=== PATIENT | male | born 1955 | race Caucasian/White ===

== ENCOUNTER 2017-12-19 09:08 | Emergency (ER) | payer BC, SELFPAY ==
[~2017-12-19] VITALS: Ht 175.3 cm; Wt 94.1 kg
[2017-12-19] MEDS ORDERED: diltiazem 5mg/ml 5ml inj. IV ONE ×3 (09:30→11:10)
[2017-12-19] MEDS ORDERED: LORazepam 2 mg/ml vial IV ONE (09:45)
[2017-12-19 09:46] LABS: BASOPHILS % (AUTO) 0.2 % (0-1); EOSINOPHILS # (AUTO) 0.1 X10'3 (0-0.9); EOSINOPHILS % (AUTO) 1.6 % (0-6); HEMATOCRIT 51.8 % (42.0-52.0); HEMOGLOBIN 17.7 g/dl (14.0-17.9); LYMPHOCYTES # (AUTO) 1.4 X10'3 (1.1-4.8); LYMPHOCYTES % (AUTO) 16.9 % (21-51); MEAN CORPUSCULAR HEMOGLOBIN 31.6 PG (27.0-31.0); MEAN CORPUSCULAR HGB CONC 34.2 % (33.0-36.5); MEAN CORPUSCULAR VOLUME 92.4 FL (78-98); MEAN PLATELET VOLUME 7.9 FL (7.4-10.4); MONOCYTES # (AUTO) 0.4 X10'3 (0-0.9); MONOCYTES % (AUTO) 4.5 % (2-12); NEUTROPHILS # (AUTO) 6.3 X10'3 (1.8-7.7); NEUTROPHILS % (AUTO) 76.8 % (42-75); PLATELET COUNT 253 X10'3 (140-440); RED CELL DISTRIBUTION WIDTH 14.8 % (11.5-14.5); WHITE BLOOD COUNT 8.2 X10'3 (4.5-11.0)
[2017-12-19 09:59] LABS: ALANINE AMINOTRANSFERASE 55 U/L (12-78); ALBUMIN 3.9 G/DL (3.4-5.0); ALKALINE PHOSPHATASE 92 IU/L (46-116); ANION GAP 16 (8-16); ASPARTATE AMINO TRANSFERASE 21 U/L (10-37); BILIRUBIN,TOTAL 0.7 MG/DL (0.1-1.0); BLOOD UREA NITROGEN 12 MG/DL (7-18); BUN/CREATININE RATIO 10.5 (5.4-32.0); CALCIUM 9.1 MG/DL (8.5-10.1); CHLORIDE 100 MMOL/L (99-107); CREATININE 1.14 MG/DL (0.60-1.10); GLUCOSE 149 MG/DL (70-104); POTASSIUM 4.3 MMOL/L (3.5-5.1); SODIUM 138 MMOL/L (135-145); TOTAL CARBON DIOXIDE 22.3 MMOL/L (24-32); TOTAL PROTEIN 7.9 G/DL (6.4-8.2); eGFR 65 ML/MIN
[2017-12-19 10:07] LABS: MAGNESIUM 1.8 MG/DL (1.5-2.4)
[2017-12-19] MEDS ORDERED: famotidine 20mg tablet PO ONE (10:50)
[2017-12-19] MEDS ORDERED: diltiazem CD 120mg capsule (once-daily) PO SCH (11:05)
[2017-12-19 11:40] VITALS: BP 120/60
== END 2017-12-19 11:43 | disposition home or self-care (01) ==
LOC: ER 09:08
DX: I48.91 Unspecified atrial fibrillation (principal); K21.9 Gastro-esophageal reflux disease without esophagitis; J44.9 Chronic obstructive pulmonary disease, unspecified; F12.90 Cannabis use, unspecified, uncomplicated; Z88.5 Allergy status to narcotic agent
CPT/HCPCS: 36415; 71045; 80053; 83735; 83880; 84484; 85025; 93005; 96374; 96375; 96376; 99291; J2060; J3490

== ENCOUNTER 2020-09-27 14:09 | Outpatient (CLI) | payer MEDICARE, BC ==
[~2020-09-27 14:09] MED LIST: APIX5TAB3 PO; ASCO500C17 PO; COFF1CAP2 PO; CYAN50003 PO; ERGO400C PO; ESCI-8 PO; FLUT1AER; KRIL500C PO; LACT1CAP94 PO; LEVA15HF4 INH; LISI20TA28 PO; MAGN125C PO; SOTA80TA PO; TIOT18CA3 INH; TURM500C4 PO
== END 2020-09-27 23:59 | disposition home or self-care (01) ==
LOC: 64 CT 14:09
PROVIDERS: ATTEND Otolaryngology
DX: J32.8 Other chronic sinusitis (principal)
CPT/HCPCS: 70486

== ENCOUNTER 2020-09-28 06:00 | Day surgery (SDC) | payer MEDICARE, BC ==
[2020-09-21 11:03] LABS: BASOPHILS # (AUTO) 0.1 X10'3 (0-0.2); BASOPHILS % (AUTO) 1.3 % (0-1); EOSINOPHILS # (AUTO) 0.2 X10'3 (0-0.9); EOSINOPHILS % (AUTO) 2.6 % (0-6); LYMPHOCYTES # (AUTO) 1.2 X10'3 (1.1-4.8); LYMPHOCYTES % (AUTO) 15.6 % (21-51); MEAN CORPUSCULAR HEMOGLOBIN 32.6 PG (27.0-31.0); MEAN CORPUSCULAR HGB CONC 33.6 g/dL (33.0-36.5); MEAN PLATELET VOLUME 8.9 FL (7.4-10.4); MONOCYTES # (AUTO) 0.8 X10'3 (0-0.9); MONOCYTES % (AUTO) 10.5 % (2-12); NEUTROPHILS # (AUTO) 5.4 X10'3 (1.8-7.7); PRE OP HEMATOCRIT 51.9 % (42.0-52.0); PRE OP HEMOGLOBIN 17.5 g/dL (14.0-17.9); PRE OP PLATELET COUNT 195 X10'3 (140-440); RED BLOOD COUNT 5.35 X10'6 (4.70-6.10); RED CELL DISTRIBUTION WIDTH 15.1 % (11.5-14.5)
[2020-09-21 11:05] LABS: PRE OP PROTIME 10.3 SECONDS (9.0-12.0)
[2020-09-21 11:06] LABS: ALBUMIN 3.8 G/DL (3.4-5.0); ALKALINE PHOSPHATASE 84 IU/L (46-116); BLOOD UREA NITROGEN 37 MG/DL (7-18); BUN/CREATININE RATIO 22.8 (5.4-32.0); CALCIUM 8.9 MG/DL (8.5-10.1); CHLORIDE 106 MMOL/L (99-107); CREATININE 1.62 MG/DL (0.60-1.10); PRE OP ALT 54 U/L (30-65); PRE OP ANION GAP 9 (8-16); PRE OP AST 24 U/L (10-37); PRE OP BILIRUB, TOTAL 0.8 MG/DL (0.0-1.0); PRE OP GLUCOSE 116 MG/DL (70-104); PRE OP SODIUM 138 MMOL/L (135-145); TOTAL CARBON DIOXIDE 22.7 MMOL/L (24-32); TOTAL PROTEIN 7.6 G/DL (6.4-8.2); eGFR 43 ML/MIN
[2020-09-28] VITALS (8 sets, daily range): BP systolic 104–173; BP diastolic 72–110
[~2020-09-28] VITALS: Ht 177.8 cm; Wt 94.8 kg
[~2020-09-28 06:00] MED LIST changes: +DOCUMENT DATE & TIME OF BETA-BLOCKER PO ONE; +famotidine 20mg tablet PO ONE; +oxymetazoline 15 ML nasal spray NS ONE; +ringers solution, lacted 1,000 ML IV SCH
[2020-09-28] MEDS ORDERED: cocaine 4% topical solution 4ml bottle ONE (06:58)
[2020-09-28] MEDS ORDERED: LIDOcaine 1% W/epiNEPHrine 1:200,000 10ml vial ONE (06:58)
[2020-09-28] MEDS ORDERED: methylPREDNISolone acetate 80mg/ml inj**IM only ONE (06:58)
[2020-09-28] MEDS ORDERED: mupirocin 2% ointment 22GM ONE (06:58)
[2020-09-28] MEDS ORDERED: cefTAZidime 1gm inj ONE (06:58)
[2020-09-28] MEDS ORDERED: oxymetazoline 15 ML nasal spray NS ONE (06:59)
[2020-09-28] MEDS ORDERED: albuterol 2.5 MG/3 ML nebule NEB ONE (07:15)
[2020-09-28 07:16] LABS: ALBUMIN 3.5 G/DL (3.4-5.0); BLOOD UREA NITROGEN 21 MG/DL (7-18); BUN/CREATININE RATIO 15.8 (5.4-32.0); CALCIUM 9.3 MG/DL (8.5-10.1); CHLORIDE 104 MMOL/L (99-107); CREATININE 1.33 MG/DL (0.60-1.10); PRE OP ANION GAP 12 (8-16); PRE OP GLUCOSE 102 MG/DL (70-104); PRE OP POTASSIUM 4.5 MMOL/L (3.4-5.1); PRE OP SODIUM 140 MMOL/L (135-145); TOTAL CARBON DIOXIDE 24.4 MMOL/L (24-32); eGFR 54 ML/MIN
[2020-09-28] MEDS ORDERED: LIDOcaine 1% W/epiNEPHrine 1:100,000 20ml vial ONE (07:20)
--- NOTE | 2020-09-28 08:00 | NUR ---
(0620) WENT INTO ROOM AFTER PT CHANGED INTO GOWN, PRESENT WITH PT. PT STATES HE WAS STANDING AND PUTTING ON THE SOCKS WHEN HE LOST HIS BALANCE AND FELL AGAINST THE WALL. DENIES FALLING TO THE FLOOR OR HITTING HIS HEAD, CORROBORATES PT'S ACCOUNT OF INCIDENT. PT ALSO STATES HE TOOK VALIUM PO AT HOME THIS AM PER DR RAMIREZ, WHICH HE HAS NEVER TAKEN BEFORE. AT THIS TIME A SMALL SHALLOW ABRASION IS NOTED ON THE RIGHT MID BACK, NO SWELLING OR BLEEDING, ONLY SLIGHT REDNESS NOTED. PT DENIES ANY OTHER INJURIES. (0800) DR RAMIREZ AND DR JACOBS BOTH NOTIFIED UPON ARRIVAL AND VISUALIZED PT'S BACK AND SPOKE TO PT- NO NEW ORDERS. SURGERY TO PROCEED PLANNED. Addendum: 09/28/20 at 1013 by Chioma Ramos RN Amended: Links added.
[2020-09-28] MEDS ORDERED: fentaNYL/PF 50MCG/1 ML 2ML syringe ONE (08:13)
[2020-09-28] MEDS ORDERED: midazolam 1 mg/ML 2ml injection ONE (08:15)
[2020-09-28] MEDS ORDERED: dexamethasone sod phosphate 4mg/ml inj. ONE (08:36)
[2020-09-28] MEDS ORDERED: LIDOcaine 2% (20mg/ml) 5ml vial ONE (08:36)
[2020-09-28] MEDS ORDERED: propofol inj 20 ML IV ONE (08:36)
[2020-09-28] MEDS ORDERED: ondansetron/PF 4mg/2ml inj ONE (08:36)
[2020-09-28] MEDS ORDERED: morphine 2 MG/ML inj. syringe IV PRN (08:50)
[2020-09-28] MEDS ORDERED: meperidine/PF 25mg/ml syringe IV PRN (08:50)
[2020-09-28] MEDS ORDERED: HYDROmorphone/PF 0.2 MG/ML SYRINGE IV PRN ×2 (08:50)
[2020-09-28] MEDS ORDERED: ringers solution, lacted 1,000 ML IV SCH (08:50)
[2020-09-28] MEDS ORDERED: hydrALAZINE 20mg/ml inj. IV PRN (08:50)
[2020-09-28] MEDS ORDERED: ondansetron/PF 4mg/2ml inj IV PRN (08:50)
[2020-09-28] MEDS ORDERED: proCHLORperazine 10 MG/2 ml inj IV PRN (08:50)
[2020-09-28] MEDS ORDERED: morphine 4 MG/ML inj SYRINge IV PRN (08:50)
[2020-09-28] MEDS ORDERED: acetaminophen 1,000mg/100ml IV 100 ML IV PRN (08:50)
[2020-09-28] MEDS ORDERED: ePHEDrine 50MG/ML INJ. ONE (09:45)
[2020-09-28] MEDS ORDERED: 0.9 % SODIUM CHLORIDE 10 ML VIAL ONE (09:45)
[2020-09-28] MEDS: labetalol 20mg/4ml (5mg/ml) syringe IV PRN ×2 (10:05→10:19)
[2020-09-28] MEDS ORDERED: salt irrigation nasal spray 45 ML SPRAY NS PRN (10:15)
[2020-09-28] MEDS ORDERED: HYDROcodone/acetaminophen 10/325mg tab PO ONE (11:00)
--- NOTE | 2020-09-28 11:03 | NUR ---
PT WAS DC'D TO HOME SAFELY VIA W/C. PT INSTRUCTIONS REVIEWED W/ PT AND SPOUSE AND BOTH STATE UNDERSTANDING REGARDING ALL POST OP INSTRUCTIONS. ALL BELONGINGS W/ PT UPON DC TO HOME. NASAL GTT DRSG HAS HAD SCANT BLOODY DRAINAGE, DRSG WAS CHANGED X 2 PRIOR TO DC TO HOME. PT VOIDED 1ST ATTEMPT APPROX 400 CC. PT STATED READINESS FOR DC TO HOME.
[2020-09-28] MEDS ORDERED: HYDROcodone/acetaminophen 5mg/325mg tablet PO ONE (11:05)
--- NOTE | 2020-09-28 11:33 | NUR ---
NASAL TAMPONS DC'D PER MD ORDERS AT THIS TIME. PT TOLERATED WELL. JUAN C NASAL GTT DRSG PLACED. NO DRAINAGE NOTED AT THIS TIME.
--- NOTE | 2020-09-28 13:48 | NUR ---
Received from OR via [facility] , accompanied by Anesthesiologist DR JACOBS and report given by Anesthesiolgist. PT SLEEPY BUT AROUSABLE, NASAL TAMPONS IN PLACE.
== END 2020-09-28 11:03 | disposition home or self-care (01) ==
LOC: PRE-OP 06:00 → PAS 11:03
PROVIDERS: ATTEND Otolaryngology
DX: J34.2 Deviated nasal septum (principal); J34.3 Hypertrophy of nasal turbinates; J32.8 Other chronic sinusitis; J44.9 Chronic obstructive pulmonary disease, unspecified; G47.33 Obstructive sleep apnea (adult) (pediatric); I48.91 Unspecified atrial fibrillation; I25.10 Atherosclerotic heart disease of native coronary artery without angina pectoris; I10 Essential (primary) hypertension; F41.9 Anxiety disorder, unspecified; F32.9 Major depressive disorder, single episode, unspecified; M19.90 Unspecified osteoarthritis, unspecified site; Z20.822 Contact with and (suspected) exposure to COVID-19; Z79.899 Other long term (current) drug therapy; Z98.890 Other specified postprocedural states; Z72.89 Other problems related to lifestyle; Z88.5 Allergy status to narcotic agent
CPT/HCPCS: 30140; 30520; 31240; 31253; 31267; 36415; 61782; 70486; 80048; 80053; 85025; 85576; 85610; 85730; 87426; 87635; 94640; A6402; C9250; J0713; J1040; J1100; J2001; J2250; J2405; J2704; J3010; J7040; J7120; 88304; 88311; A4618; A7000; J3490